=== PATIENT | female | born 1985 | race Caucasian/White ===

== ENCOUNTER 2017-05-17 15:44 | Emergency (ER) | payer OTHER ==
[2017-05-17] MEDS ORDERED: Sodium Chloride 0.9% 1,000 ML IV STA (16:06)
--- NOTE | 2017-05-17 16:12 | ED PDOC ---
HPI: Abdomen Time Seen by Provider: 05/17/17 15:57 Chief Complaint (Provider): Abdominal Pain/Flank Pain History Per: Patient History/Exam Limitations: no limitations Onset/Duration Of Symptoms: Hrs (x3) Location Of Pain/Discomfort: RUQ, RLQ, LUQ, LLQ Additional Complaint(s): Balta Sung is a 31 year old female that presents to the ED with a chief complaint of right sided abdominal pain and right sided flank pain that she began experiencing three hours ago. Patient reports associated nausea and vomiting, but denies any dysuria, fever, or diarrhea. Last Menstrual Period: 04/27/17 Past Medical History Reviewed: Historical Data, Nursing Documentation, Vital Signs - Medical History PMH: No Chronic Diseases - Surgical History Other surgeries: Breast augmentation - Family History Family History: States: Unknown Family Hx - Home Medications Home Medications: Ambulatory Orders Medication Instructions Recorded Ciprofloxacin HCl [Cipro] 500 mg PO BID #20 tab 05/17/17 Naproxen [Naprosyn] 500 mg PO Q12H #20 tab 05/17/17 - Allergies Allergies/Adverse Reactions: Allergies Allergy/AdvReac Type Severity Reaction Status Date / Time No Known Allergies Allergy Verified 03/31/15 16:00 Review of Systems Constitutional: Negative for: Fever Gastrointestinal: Positive for: Nausea, Vomiting, Abdominal Pain (right-sided). Negative for: Diarrhea Genitourinary Female: Negative for: Dysuria Musculoskeletal: Positive for: Back Pain (right-sided flank pain) Physical Exam - Reviewed Nursing Documentation Reviewed: Yes Vital Signs Reviewed: Yes - Physical Exam Appears: Positive for: Non-toxic. Negative for: No Acute Distress (Mild painful distress) Head Exam: Positive for: ATRAUMATIC, NORMOCEPHALIC Skin: Positive for: Normal Color, Warm Gastrointestinal/Abdominal: Positive for: Tenderness (TTP all four quadrants ). Negative for: Normal Exam Back: Positive for: L CVA Tenderness, R CVA Tenderness. Negative for: Normal Inspection Neurologic/Psych: Positive for: Alert, Oriented. Negative for: Motor/Sensory Deficits - Laboratory Results Result Diagrams: 05/17/17 15:40 05/17/17 16:20 - Progress Re-evaluation Time: 18:16 Condition: Improved Medical Decision Making Medical Decision Making: Impression: Abdominal Pain Plan: * CT Abd/Pelvis w/o PO or IV contrast * Urine dipstick * Urine * Toradol 30 mg IV * Zofran 4 mg Inj * NaCl 1000 mLs at 100 mLs/hr * Reevaluation CT Abd/Pelvis FINDINGS: LOWER THORAX: There may be some minor left basilar atelectasis. No effusion or basilar pneumothorax. Small hiatal hernia with slight wall thickening of the distal esophagus likely due to protrusion of gastric mucosa. Possibility of esophagitis not excluded. Bilateral breast implants LIVER: Liver exhibits relatively normal size measuring nearly 17 cm in CC dimension. No obvious hepatic mass collection or calcification. GALLBLADDER AND BILE DUCTS: Gallbladder is physiologically distended. No evidence of intraluminal gallbladder calculi. PANCREAS: The pancreas is not well delineated due to the lack of oral and IV contrast material as well as a paucity of retroperitoneal/intraperitoneal fat. No gross pancreatic abnormalities SPLEEN: Spleen exhibits normal size and attenuation pattern without mass collection or calcification. ADRENALS: No obvious adrenal lesions. KIDNEYS AND URETERS: The kidneys demonstrate relatively symmetric size. No evidence of nephrolithiasis or hydronephrosis. BLADDER: Urinary bladder is incompletely distended which limits evaluation. No obvious intraluminal urinary bladder calculi. . REPRODUCTIVE: Uterus appears grossly unremarkable. APPENDIX: What is felt to represent a normal partially air and debris filled appendix best seen on axial image number [id number] and coronal image number [id number]. BOWEL: Evaluation of the bowel is somewhat limited due to the lack of oral contrast material. Stomach is incompletely distended which presumably accounts for slight thick-walled appearance. Visualized loops of small bowel exhibit normal contour and caliber. No evidence of acute mechanical small bowel obstruction. PERITONEUM: Unremarkable. No fluid collection. No free air. LYMPH NODES: Unremarkable. No enlarged lymph nodes. VASCULATURE: Unremarkable. No aortic aneurysm. BONES: No fracture or destructive lesion. OTHER FINDINGS: None. IMPRESSION: No evidence of obstructing nephrolithiasis. No evidence of acute appendicitis. Scribe Attestation: Documented by Latia Abidor, acting as a scribe for Fermín Amaro MD. Provider Scribe Attestation: All medical record entries made by the Scribe were at my direction and personally dictated by me. I have reviewed the chart and agree that the record accurately reflects my personal performance of the history, physical exam, medical decision making, and the department course for this patient. I have also personally directed, reviewed, and agree with the discharge instructions and disposition. Disposition - Clinical Impression Clinical Impression: UTI (urinary tract infection) - Patient ED Disposition Is Patient to be Admitted: No Counseled Patient/Family Regarding: Studies Performed, Diagnosis, Need For Followup, Rx Given - Disposition Referrals: [facility] [Outside] Disposition: Routine/Home Disposition Time: 18:17 Condition: FAIR Prescriptions: Ciprofloxacin HCl [Cipro] 500 mg PO BID #20 tab Naproxen [Naprosyn] 500 mg PO Q12H #20 tab Instructions: Urinary Tract Infection in Women (ED) Print Language: TAJIK
[2017-05-17 16:26] LABS: BASO % 0.3 % (0.0-2.0); EOS # 0.2 K/uL (0.0-0.7); EOS % 2.8 % (0.0-4.0); LYMPH # 2.7 K/uL (1.0-4.3); LYMPH % 35.2 % (20.0-40.0); MEAN CELL VOLUME 91.3 fl (81.0-99.0); MEAN CORPUSCULAR HEMOGLOBIN 29.9 pg (27.0-31.0); MEAN CORPUSCULAR HGB CONC 32.8 g/dL (33.0-37.0); MEAN PLATELET VOLUME 11.2 fl (7.2-11.7); MONO # 0.4 K/uL (0.0-0.8); MONO % 4.6 % (0.0-10.0); NEUT # 4.4 K/uL (1.8-7.0); NEUT % 57.1 % (50.0-75.0); WHITE BLOOD COUNT 7.8 K/uL (4.8-10.8)
[2017-05-17 16:36] LABS: ALB/GLOB RATIO 1.4 (1.0-2.1); ALKALINE PHOSPHATASE 56 U/L (38-126); ALT/SGPT 23 U/L (9-52); AST/SGOT 42 U/L (14-36); BILIRUBIN,TOTAL 0.6 mg/dl (0.2-1.3); BLOOD UREA NITROGEN 9 mg/dl (7-17); CALCIUM 9.1 mg/dL (8.4-10.2); CARBON DIOXIDE 24 mmol/L (22-30); CHLORIDE 105 mmol/L (98-107); GFR AFRICAN-AMERICAN > 60; GLUCOSE,RANDOM 123 mg/dL (65-105); SODIUM 140 mmol/l (132-148); TOTAL PROTEIN 7.7 G/DL (6.3-8.2)
--- NOTE | 2017-05-17 17:36 | CT ---
PROCEDURE: CT abdomen and pelvis dated 05/17/2017 HISTORY: Rule out kidney stone Right flank/RLQ pain COMPARISON: No prior TECHNIQUE: Contiguous axial images of the abdomen and pelvis performed without oral or intravenous contrast material. Coronal and Sagittal reformats generated. Radiation dose: Total exam DLP = 274.16 mGy-cm. This CT exam was performed using one or more of the following dose reduction techniques: Automated exposure control, adjustment of the mA and/or kV according to patient size, and/or use of iterative reconstruction technique. FINDINGS: LOWER THORAX: There may be some minor left basilar atelectasis. No effusion or basilar pneumothorax. Small hiatal hernia with slight wall thickening of the distal esophagus likely due to protrusion of gastric mucosa. Possibility of esophagitis not excluded. Bilateral breast implants LIVER: Liver exhibits relatively normal size measuring nearly 17 cm in CC dimension. No obvious hepatic mass collection or calcification. GALLBLADDER AND BILE DUCTS: Gallbladder is physiologically distended. No evidence of intraluminal gallbladder calculi. PANCREAS: The pancreas is not well delineated due to the lack of oral and IV contrast material as well as a paucity of retroperitoneal/intraperitoneal fat. No gross pancreatic abnormalities SPLEEN: Spleen exhibits normal size and attenuation pattern without mass collection or calcification. ADRENALS: No obvious adrenal lesions. KIDNEYS AND URETERS: The kidneys demonstrate relatively symmetric size. No evidence of nephrolithiasis or hydronephrosis. BLADDER: Urinary bladder is incompletely distended which limits evaluation. No obvious intraluminal urinary bladder calculi. . REPRODUCTIVE: Uterus appears grossly unremarkable. APPENDIX: What is felt to represent a normal partially air and debris filled appendix best seen on axial image number [id number] and coronal image number [id number]. BOWEL: Evaluation of the bowel is somewhat limited due to the lack of oral contrast material. Stomach is incompletely distended which presumably accounts for slight thick-walled appearance. Visualized loops of small bowel exhibit normal contour and caliber. No evidence of acute mechanical small bowel obstruction. PERITONEUM: Unremarkable. No fluid collection. No free air. LYMPH NODES: Unremarkable. No enlarged lymph nodes. VASCULATURE: Unremarkable. No aortic aneurysm. BONES: No fracture or destructive lesion. OTHER FINDINGS: None. IMPRESSION: No evidence of obstructing nephrolithiasis. No evidence of acute appendicitis. Findings discussed with Dr. Amaro at approximately 5:35 p.m. with written down and read back verification.
[2017-05-17 18:50] VITALS: BP 123/76; PULSE 76; RESP 18; O2SAT 100
== END 2017-05-17 18:50 | disposition home or self-care (01) ==
LOC: H.ER 15:44
DX: N39.0 Urinary tract infection, site not specified (principal)
CPT/HCPCS: 74176; 80053; 81025; 85025; 96374; 96375; 96376; 99283; J1885; J2270; J2405; J7040

== ENCOUNTER 2017-09-14 07:05 | Emergency (ER) | payer OTHER, SELFPAY ==
[2017-09-14 07:41] VITALS: BMI 23.4
[2017-09-14] MEDS ORDERED: Sodium Chloride 0.9% 1,000 ML IV STA (07:42)
--- NOTE | 2017-09-14 08:05 | ED PDOC ---
HPI: Abdomen Time Seen by Provider: 09/14/17 07:18 Chief Complaint (Nursing): Abdominal Pain Chief Complaint (Provider): Vomiting History Per: Patient History/Exam Limitations: no limitations Onset/Duration Of Symptoms: Days (2 weeks) Current Symptoms Are (Timing): Still Present Additional Complaint(s): 32 y/o female presents to the ED complaining of vomiting 4x daily, onset of 14 days. Patient reports that she hasn't seen a physician in the past for her condition, but today she started to feel dizzy and light headed, prompting her visit. She denies any abdominal pain, diarrhea, or any medication to stop the vomiting. Of note, patient has a surgical history of breast implants. : 4 Para: 2 Miscarriage: 1 Past Medical History Reviewed: Historical Data, Nursing Documentation, Vital Signs Vital Signs: Last Vital Signs Temp 98 F 09/14/17 08:31 Pulse 104 H 09/14/17 08:31 Resp 18 09/14/17 08:31 BP 118/100 H 09/14/17 08:31 Pulse Ox 99 09/14/17 08:31 - Medical History PMH: No Chronic Diseases - Surgical History Other surgeries: Breast Augmentation - Family History Family History: States: Unknown Family Hx - Social History Current smoker - smoking cessation education provided: No Ex-Smoker (has not smoked in the last 12 months): No Alcohol: None Drugs: Denies - Home Medications Home Medications: Ambulatory Orders Medication Instructions Recorded Ciprofloxacin HCl [Cipro] 500 mg PO BID #20 tab 05/17/17 Naproxen [Naprosyn] 500 mg PO Q12H #20 tab 05/17/17 105/Iron/Folic AC/Dha 1 each PO DAILY #30 combo..pkg 09/14/17 [Prena1 True Combo Pack] - Allergies Allergies/Adverse Reactions: Allergies Allergy/AdvReac Type Severity Reaction Status Date / Time No Known Allergies Allergy Verified 03/31/15 16:00 Review of Systems ROS Statement: Except As Marked, All Systems Reviewed And Found Negative Gastrointestinal: Positive for: Vomiting. Negative for: Nausea, Abdominal Pain , Diarrhea Genitourinary Female: Negative for: Dysuria, Frequency, Incontinence, Vaginal Bleeding Neurological: Positive for: Dizziness Physical Exam - Reviewed Nursing Documentation Reviewed: Yes Vital Signs Reviewed: Yes - Physical Exam Appears: Positive for: Non-toxic Head Exam: Positive for: ATRAUMATIC, NORMOCEPHALIC Skin: Positive for: Normal Color, Warm Eye Exam: Positive for: Normal appearance, EOMI, PERRL ENT: Positive for: Normal ENT Inspection Neck: Positive for: Normal, Painless ROM, Supple Cardiovascular/Chest: Positive for: Regular Rate, Rhythm. Negative for: Murmur Respiratory: Positive for: Normal Breath Sounds. Negative for: Respiratory Distress Gastrointestinal/Abdominal: Positive for: Normal Exam, Soft. Negative for: Tenderness Back: Positive for: Normal Inspection Extremity: Positive for: Normal ROM. Negative for: Pedal Edema, Deformity Neurologic/Psych: Positive for: Alert, Oriented. Negative for: Motor/Sensory Deficits - Laboratory Results Result Diagrams: 09/14/17 08:11 09/14/17 08:11 - ECG Pulse Ox Interpretation: Normal Medical Decision Making Medical Decision Making: Time: --07:42 Impression: --Vomiting Differential: --Gastritis Plan: --Labs --Lipase --ED Urine Dip --Ed Urine --Pepcid 20 mg IVP --IV Fluids --IV Insertion Reassess --08:24 Positive ED Urine Scribe Attestation: Documented by Hayder Nieto acting as a scribe for Marta Paredes MD. Disposition - Clinical Impression Clinical Impression: - Patient ED Disposition Is Patient to be Admitted: No Doctor Will See Patient In The: Office - Disposition [facility] [Outside] Disposition: Routine/Home Disposition Time: 08:36 Condition: STABLE Prescriptions: 105/Iron/Folic AC/Dha [Prena1 True Combo Pack] 1 each PO DAILY #30 combo..pkg Instructions: Morning Sickness (ED), (ED) Forms: [employer] (Setswana), [facility] ED School/Work Excuse Print Language: MONGOLIAN - POA Present On Arrival: None
[2017-09-14 08:26] LABS: BASO % 0.5 % (0.0-2.0); EOS # 0.8 K/uL (0.0-0.7); HEMOGLOBIN 11.4 g/dL (12.0-16.0); LYMPH # 2.2 K/uL (1.0-4.3); LYMPH % 27.2 % (20.0-40.0); MEAN CELL VOLUME 90.4 fl (81.0-99.0); MEAN CORPUSCULAR HEMOGLOBIN 29.6 pg (27.0-31.0); MEAN CORPUSCULAR HGB CONC 32.8 g/dL (33.0-37.0); MEAN PLATELET VOLUME 10.1 fl (7.2-11.7); MONO # 0.5 K/uL (0.0-0.8); MONO % 6.5 % (0.0-10.0); NEUT # 4.5 K/uL (1.8-7.0); NEUT % 55.8 % (50.0-75.0); NRBC % 0.1 % (0.0-0.0); RBC 3.85 Mil/uL (3.80-5.20); RED CELL DISTRIBUTION WIDTH 12.4 % (11.5-14.5)
[2017-09-14 08:31] VITALS: RESP 18; TEMP 98; O2SAT 99
[2017-09-14 08:35] LABS: ALB/GLOB RATIO 1.2 (1.0-2.1); ALBUMIN 3.7 g/dL (3.5-5.0); ALT/SGPT 25 U/L (9-52); AST/SGOT 18 U/L (14-36); BLOOD UREA NITROGEN 9 mg/dl (7-17); GFR AFRICAN-AMERICAN > 60; GFR NON-AFRICAN AMERICAN > 60; LIPASE 235 U/L (23-300)
[2017-09-14 10:00] VITALS: BP 122/90; PULSE 90
== END 2017-09-14 09:48 | disposition home or self-care (01) ==
LOC: H.ER 07:05
DX: O21.9 Vomiting of pregnancy, unspecified (principal)
CPT/HCPCS: 80053; 81025; 83690; 85025; 99283; J7040

== ENCOUNTER 2018-04-08 11:03 | Inpatient (IN) | payer MEDICAID, SELFPAY ==
[2018-04-08 14:30] LABS: BASO % 0.3 % (0.0-2.0); EOS # 0.2 K/uL (0.0-0.7); EOS % 1.8 % (0.0-4.0); HEMOGLOBIN 11.6 g/dL (12.0-16.0); LYMPH % 17.2 % (20.0-40.0); MEAN CELL VOLUME 90.8 fl (81.0-99.0); MEAN CORPUSCULAR HEMOGLOBIN 30.1 pg (27.0-31.0); MEAN CORPUSCULAR HGB CONC 33.1 g/dL (33.0-37.0); MEAN PLATELET VOLUME 10.1 fl (7.2-11.7); MONO # 0.6 K/uL (0.0-0.8); MONO % 5.3 % (0.0-10.0); NEUT # 8.8 K/uL (1.8-7.0); NEUT % 75.4 % (50.0-75.0); NRBC % 0.1 % (0.0-0.0); RBC 3.85 Mil/uL (3.80-5.20); RED CELL DISTRIBUTION WIDTH 13.2 % (11.5-14.5); WHITE BLOOD COUNT 11.7 K/uL (4.8-10.8)
[2018-04-08] MEDS: Lactated Ringer's 1,000 ML IV ONE ×2 (14:30→15:30)
[2018-04-08] MEDS ORDERED: Fentanyl/Bupivacaine HCl 250 ML EPI ONE (15:29)
[2018-04-08] MEDS ORDERED: OXYTOCIN/0.9 % NS 20 UNIT/1,000 ML BAG IV ONE (15:30)
[2018-04-08] MEDS ORDERED: Lactated Ringer's 1,000 ML IV ONE (15:30)
[2018-04-08] MEDS: Oxytocin 30 UNIT 30 UNITS/500 ML BAG IV ONE ×2 (16:05→16:18)
--- NOTE | 2018-04-08 19:04 | OBDS ---
DELIVERY PERSONNEL Delivery Doctor: Nidhi Everett MD Glazier Apprentice: Alysa Mora RN Resident: Edouard Olivares MD MATERNAL INFORMATION Delivery Anesthesia: Epidural Medications in Delivery: Pitocn Estimated Blood Loss (ml): 150 Placenta Cultured: Yes Maternal Complications: None RN Comments: Atraumatic delvery of viable babygirl with Lusty cry unattended delvery Nuria Mora RN at the bedside. nfants head noted noted wth delvery of the shoulders, followed by torso than l egs. Infint noted wth a LUsty cry. Dried wth towels cord clamped and cut. Infant placed on patents chest patent declined Skin to skin. Infant noted as SGA wieghng 5lbs [address] Dudley present 5 minutes after delvery. Infant and patent recoverng well. Provider Comments: At 15:59 this 32 yo G4 now P2002 delivered vaginally under epidural anesthesia. I nfant was suctioned with bulb on the perineum. The infant was placed on the pt abdomen after delivery . The cord clamped and cut. placenta was intact with normal 3-vessel cord. the fundus was firm with m assage and IV pitocin. There was a perineal laceration grade 2, Sutured by Dr. Everett. Female infan t weight 2340 grams, score 9/9 EBL 150 ml, mom and infant are recovering well. Attending : Dr. Everett Note written by Rosangela PGY 1 obh addendum: agree with above note with following additions findings c/w sga placenta to path remained in br w/ pt. LABOR SUMMARY EDC: 04/13/2018 00:00 No. Babies in Womb: 1 Attempted: No Labor Anesthesia: Epidural LABOR INFORMATION Reason for Induction: Not Applicable Onset of Labor: 04/08/2018 06:00 Complete Dilatation: 04/08/2018 15:40 Oxytocin: N/A Group B Beta Strep: Negative Antibiotics # of Doses: none Steroids Given: None Reason Steroids Not Administered: Not Applicable Other Reason Not Administered: Not requred MEMBRANES Membranes Rupture Method: Spontaneous Rupture of Membranes: 04/08/2018 15:40 Length of Rupture (hrs): 0.32 Amniotic Fluid Color: Light Meconium Amniotic Fluid Amount: Small Amniotic Fluid Odor: Normal STAGES OF LABOR Stage 1 hrs: 7 Stage 1 min: 40 Stage 2 hrs: 0 Stage 2 min: 19 Stage 3 hrs: 0 Stage 3 min: 9 Total Time in Labor hrs: 8 Total Time in Labor min: 8 VAGINAL DELIVERY Episiotomy: None Laceration Extension: Second Degree Laceration Type: Perineal; Vaginal Laceration Repair: Yes Laceration Repair Note: 2nd degree perineal repaired w/ 3-0 polysorb. subcuticular portion of labia repaired w/ 2-0 vicryl on a sh needle with simple interrupted suture s Initial Vag Sponge Count: 5 Final Vag Sponge Count: 5 Initial Vag Sharps Count: 2 Final Vag Sharps Count: 2 Sponge Count Correct: Yes Sharps Count Correct: Yes BABY A INFORMATION Delivery Date/Time: 04/08/2018 15:59 Method of Delivery: Vaginal Born in Route : No : N/A Forceps: N/A Vacuum Extraction: N/A Shoulder Dystocia : Yes SHOULDER DYSTOCIA BABY A Delivery Date/Time: 04/08/2018 15:59 PRESENTATION/POSITION BABY A Presentation: Cephalic Cephalic Presentation: Vertex Vertex Position: Left Occipital Anterior Breech Presentation: N/A PLACENTA INFORMATION BABY A Placenta Delivery Time : 04/08/2018 16:08 Placenta Method of Delivery: Spontaneous Placenta Status: Delivered SCORES BABY A Heart Rate 1 min: >100 bpm Resp Effort 1 min: Good Cry Reflex Irritability 1 min: Cough or Sneeze or Pulls Away Muscle Tone 1 min: Active Motion Color 1 min: Body [place], Extremities Blue Resuscitation Effort 1 min: N/A SCORE 1 MIN: 9 Heart Rate 5 min: >100 bpm Resp Effort 5 min: Good Cry Reflex Irritability 5 min: Cough or Sneeze or Pulls Away Muscle Tone 5 min: Active Motion Color 5 min: Body [place], Extremities Blue Resuscitation Effort 5 min: N/A SCORE 5 MIN: 9 INFANT INFORMATION BABY A Gestational Age at Delivery: 39.0 Gestational Status: Term Outcome : Liveborn Infant Condition : Stable Infant Sex: Female IDENTIFICATION/MEDS BABY A ID Band Number: [id number] ID Band Location: Left Leg; Left Arm WEIGHT/LENGTH BABY A Birthweight (gms): 2340 Weight (lb): 5 Infant Weight (oz): 3 CORD INFORMATION BABY A No. Cord Vessels: 3 Nuchal Cord : N/A Cord Blood Taken: No Suction: Mouth; Nose
[2018-04-09] MEDS ORDERED: Benzocaine/Menthol SPRAY TOP PRN ×2 (00:15→01:27)
[2018-04-09] MEDS ORDERED: Oxycodone/Acetaminophen 5/325 mg Tab PO PRN ×2 (00:15→01:27)
[2018-04-09 06:16] LABS: BASO # 0.1 K/uL (0.0-0.2); BASO % 0.7 % (0.0-2.0); EOS # 0.3 K/uL (0.0-0.7); EOS % 2.1 % (0.0-4.0); HEMOGLOBIN 10.7 g/dL (12.0-16.0); LYMPH # 2.8 K/uL (1.0-4.3); LYMPH % 20.6 % (20.0-40.0); MEAN CORPUSCULAR HEMOGLOBIN 30.3 pg (27.0-31.0); MEAN CORPUSCULAR HGB CONC 33.2 g/dL (33.0-37.0); MEAN PLATELET VOLUME 9.5 fl (7.2-11.7); MONO # 0.9 K/uL (0.0-0.8); MONO % 6.4 % (0.0-10.0); NEUT # 9.5 K/uL (1.8-7.0); NEUT % 70.2 % (50.0-75.0); RBC 3.54 Mil/uL (3.80-5.20); RED CELL DISTRIBUTION WIDTH 13.1 % (11.5-14.5); WHITE BLOOD COUNT 13.6 K/uL (4.8-10.8)
--- NOTE | 2018-04-09 08:30 | OBPPN ---
Datetime: 04/09/2018 06:48 PP Pain Prov: Within normal limits PP Abdomen/Uterus Prov: Normal PP Impression Prov: Normal progression PP Plan Prov: Continue present management PP Progress Note Prov: 32 y/o now now, s/p NVD at 39.2 wks GA on 01/06/18 at 15:59, seen this A M. Pt reports feeling well. Pain well controlled with medication. Pt tolerates oral food, denies N/V/ D. Pt is able to ambulate, patient is passing gas per rectum. Pt is and supplementing w ith formula. Patient states that her lochia is still a little more than menses in volume, but less th an yesterday. Pt denies MANCUSO, blurry of vision, dizziness, chest pain, SOB, abdominal pain or dysuria. All systems reviewed and negative except as above. O: H/H on 04/09/18 is 10.7/32.2 Physical Exam: -GEN: NAD, mood stable. -HEENT: NC/AT, EOMI, moist mucous membranes -Neck: supple, normal ROM -CV: S1 and S2 present, no murmurs noted. -LUNGS: CTA bilateral -ABD: BS present, soft, fundus of uterus at umbilicus. -EXT: No calf tenderness, Elaine's neg, no edema. -NEURO: AAOx3, CN grossly wnl. A/P 32 y/o on PPD 1, stable and recovering well from NVD. -Continue post- management - and Ambulation encouraged. -Motrin 600 po q6h prn for pain. Patient seen and examined by me this am. Agree with above note. --Dr. Gardiner
--- NOTE | 2018-04-09 08:38 | OBADHP ---
Datetime: 04/08/2018 12:21 Admit Comment, IP Provider: 32 yo edc 04/13 y 16wk us present w/ c/o ctxs since last night. d enies srom, vag bleeding or decreased fm pshx: denies pmhx: denies obhx:svdx2; complete ab psychhx: mild depress states [id number] to fob drinking nkda medic: pnv i:39 wks labor p: admit Pelvic Type - PN: Adequate Abdomen - PN: Normal Lungs - PN: Normal Heart - PN: Normal Neurologic - PN: Normal HEENT - PN: Normal General - PN: Normal Presentation-Admit: Vertex FHR - Baseline A Provider: 130 Comments, ACOG Physical Exam: b+/ri/gbs neg/hiv, rprneg anteruir myoma [id number] Vital Signs Provider: Within Normal Limits IP Chief Complaint: Uterine contractions NICHD Variability Prov Fetus A: Moderate 6-25bpm NICHD Accel Fetus A IP Provider: 10X10 FHR Category Provider Fetus A: Category I NICHD Decel Fetus A IP Provider: None Genitourinary Exam: Normal EGA AdmitDate IP: 39.2 IP Adm Impression: Term, intrauterine IP Admit Plan: Admit to unit; Initiate labor protocol
[2018-04-10] MEDS ORDERED: Tdap Vaccine 0.5 ml Vial (10-64 yrs) IM ONE (08:00)
[2018-04-11 02:57] VITALS: BP 99/80; PULSE 83; RESP 20; TEMP 98.5; O2SAT 95
== END 2018-04-10 15:40 | disposition home or self-care (01) | DRG 775 ==
LOC: H.EROB2 11:03 → H.L&D 12:38 → H.OB/GYN 20:20
PROVIDERS: ADMIT Obstetrics & Gynecology; ATTEND Obstetrics & Gynecology
PROC: 10E0XZZ Delivery of Products of Conception, External Approach (ICD-10-PCS; principal; 2018-04-08)
PROC: 0KQM0ZZ Repair Perineum Muscle, Open Approach (ICD-10-PCS; 2018-04-08)
PROC: 4A1HXCZ Monitoring of Products of Conception, Cardiac Rate, External Approach (ICD-10-PCS; 2018-04-08)
DX: O36.5930 Maternal care for other known or suspected poor fetal growth, third trimester, not applicable or unspecified (principal); O70.1 Second degree perineal laceration during delivery; Z37.0 Single live birth; Z3A.39 39 weeks gestation of pregnancy; O66.0 Obstructed labor due to shoulder dystocia